=== PATIENT | female | born 1945 | race Caucasian/White ===

== ENCOUNTER 2018-07-01 16:00 | Emergency (ER) | payer OTHER ==
[~2018-07-01] VITALS: Ht 162.6 cm; Wt 99.8 kg
[~2018-07-01 16:00] MED LIST: ALBU.083IS; ALBU90OI INH; ALEVE220 MG; Epitol200 MG; FLUSAL1005; FLUSAL2505 IH; GABA300; GUAI600T33; LEVSOD88; LOSARTAN POTAS100 MG; NITR.4SL; PRED20 PO; PRO AIR HFA; RXPROCODSY PO; [UNRECOGNIZED DRUG - CODE]
[2018-07-01 16:25] LABS: BASOPHILS ABSOLUTE AUTO 0.05 K/mm3 (0.00-0.23); BASOPHILS PERCENT AUTO 1 % (0-2); EOSINOPHILS ABSOLUTE AUTO 0.59 K/mm3 (0.00-0.68); EOSINOPHILS PERCENT AUTO 6 % (0-6); Hematocrit 39.2 % (33.0-51.0); Hemoglobin 12.8 g/dL (11.5-16.0); IMMATURE GRAN ABSOLUTE AUTO 0.02 K/mm3 (0.00-0.10); IMMATURE GRAN PERCENT AUTO 0 % (0-1); LYMPHOCYTES ABSOLUTE AUTO 5.19 K/mm3 (0.84-5.20); LYMPHOCYTES PERCENT AUTO 53 % (21-46); MONOCYTES ABSOLUTE AUTO 0.74 K/mm3 (0.16-1.47); MONOCYTES PERCENT AUTO 8 % (4-13); Mean Corpuscular HGB 30.3 pg (26.0-34.0); Mean Corpuscular HGB Conc 32.7 g/dL (31.5-36.5); Mean Corpuscular Volume 93 fL (80-100); NEUTROPHILS ABSOLUTE AUTO 3.15 K/mm3 (1.96-9.15); NEUTROPHILS PERCENT AUTO 32 % (41-73); RDW Coefficient Variation 12.6 % (11.7-14.2); RDW Standard Deviation 42.7 fL (35.1-46.3); Red Blood Cell Count 4.23 M/mm3 (3.80-5.20); White Blood Cell Count 9.74 K/mm3 (4.00-11.30)
[2018-07-01 16:27] LABS: Mean Platelet Volume 11.4 fL (9.1-12.4); Platelet Count 154 K/mm3 (150-400)
[2018-07-01 16:43] LABS: Alanine Aminotransfer (ALT/SGP 53 U/L (12-78); Albumin, Blood 3.5 g/dL (3.4-5.0); Albumin/Globulin Ratio 0.9 (0.8-1.8); Alk Phos 145 U/L (50-136); Anion Gap 8 mmol/L (6-16); Aspartate Aminotrans (AST/SGOT 38 U/L (12-37); Bilirubin, Total 0.2 mg/dL (0.1-1.0); Blood Urea Nitrogen 7 mg/dL (8-24); Bun/Creatinine Ratio 7.9 (12.0-20.0); CO2, Blood 26 mmol/L (21-32); Calcium, Blood 8.6 mg/dL (8.5-10.1); Chloride, Blood 108 mmol/L (98-108); Creatinine, Blood 0.89 mg/dL (0.40-1.00); Globulin, Blood 3.8 g/dL (2.2-4.0); Glomerular Filtration Rate >60 (60-); Glucose, Blood 96 mg/dL (70-99); Potassium, Blood 3.7 mmol/L (3.5-5.5); Sodium, Blood 142 mmol/L (136-145); Total Protein, Blood 7.3 g/dL (6.4-8.2); Troponin I <0.015 ng/mL (0.000-0.040)
[2018-07-01] MEDS ORDERED: ALBU2.5V5 NEB (17:46)
[2018-07-01] MEDS ORDERED: Prednisone20 MG PO (18:54)
== END 2018-07-01 19:54 | disposition home or self-care (01) ==
LOC: ER 16:00
PROVIDERS: Emergency Medicine
DX: J45.901 Unspecified asthma with (acute) exacerbation (principal); Z88.2 Allergy status to sulfonamides; Z88.1 Allergy status to other antibiotic agents; Z79.899 Other long term (current) drug therapy
CPT/HCPCS: 36415; 70360; 71045; 71260; 80053; 84484; 85025; 85379; 93005; 93010; 94644; 96374; 99284-25; J2930; Q0163; Q9967

== ENCOUNTER 2019-02-28 13:49 | Emergency (ER) | payer OTHER ==
[~2019-02-28] VITALS: Ht 162.6 cm; Wt 104.3 kg
[~2019-02-28 13:49] MED LIST changes: +ALBU2.5V5 NEB; +Prednisone20 MG PO
== END 2019-02-28 16:20 | disposition home or self-care (01) ==
LOC: ER 13:49
DX: M79.89 Other specified soft tissue disorders (principal); J45.909 Unspecified asthma, uncomplicated; Z87.891 Personal history of nicotine dependence; Z88.2 Allergy status to sulfonamides; Z88.1 Allergy status to other antibiotic agents; Z88.7 Allergy status to serum and vaccine; Z79.899 Other long term (current) drug therapy; Z79.52 Long term (current) use of systemic steroids
CPT/HCPCS: 93970; 99283-25

== ENCOUNTER 2019-03-03 22:55 | Emergency (ER) | payer OTHER ==
[~2019-03-03] VITALS: Ht 162.6 cm; Wt 102.1 kg
== END 2019-03-03 23:27 | disposition home or self-care (01) ==
LOC: ER 22:55
DX: R60.0 Localized edema (principal); J00 Acute nasopharyngitis [common cold]; J45.909 Unspecified asthma, uncomplicated; Z88.2 Allergy status to sulfonamides; Z88.8 Allergy status to other drugs, medicaments and biological substances; Z79.899 Other long term (current) drug therapy; Z87.891 Personal history of nicotine dependence
CPT/HCPCS: 99283